=== PATIENT | male | born 1955 | race Caucasian/White ===

== ENCOUNTER 2022-12-20 08:03 | Outpatient (CLI) | payer BC, SELFPAY | END 2022-12-20 08:04 | disposition home or self-care (01) | PROVIDERS: PCP Family Medicine; Visit Provider Family Medicine | DX: Z00.00 Encounter for general adult medical examination without abnormal findings (principal); E78.5 Hyperlipidemia, unspecified; M10.9 Gout, unspecified; Z12.5 Encounter for screening for malignant neoplasm of prostate | CPT/HCPCS: 80053; 80061; 84153; 84550 ==

== ENCOUNTER 2023-01-15 08:04 | Outpatient (CLI) | payer BC, SELFPAY ==
--- NOTE | 2023-01-15 09:47 | W.ANESCHARGE ---
Anesthesia Charges Start Date/Time Anesthesia Start Date: 01/15/23 Anesthesia Start Time: 08:47 Stop Date/Time Anesthesia Stop Date: 01/15/23 Anesthesia Stop Time: 09:47
--- NOTE | 2023-01-15 10:20 | W.ANESCHARGE ---
Anesthesia Charges Start Date/Time Anesthesia Start Date: 01/15/23 Anesthesia Start Time: 08:47 Stop Date/Time Anesthesia Stop Date: 01/15/23 Anesthesia Stop Time: 09:47
== END 2023-01-15 08:05 | disposition home or self-care (01) ==
LOC: OP CLINIC 08:05
PROVIDERS: PCP Family Medicine; Visit Provider Surgery
DX: Z12.11 Encounter for screening for malignant neoplasm of colon (principal); K63.5 Polyp of colon; K62.1 Rectal polyp; Z86.010 Personal history of colon polyps
CPT/HCPCS: 00811; 45381; 45385; 88305; J2704

== ENCOUNTER 2024-01-31 09:29 | Outpatient (CLI) | payer BC, SELFPAY | END 2024-01-31 09:30 | disposition home or self-care (01) | PROVIDERS: PCP Family Medicine; Visit Provider Family Medicine | DX: E78.5 Hyperlipidemia, unspecified (principal); R97.20 Elevated prostate specific antigen [PSA]; M10.9 Gout, unspecified; Z12.5 Encounter for screening for malignant neoplasm of prostate | CPT/HCPCS: 80053; 80061; 84550; G0103 ==

== ENCOUNTER 2024-02-18 08:54 | Outpatient (CLI) | payer BC, SELFPAY ==
--- NOTE | 2024-02-18 10:03 | W.ANESCHARGE ---
Anesthesia Charges Start Date/Time Anesthesia Start Date: 02/18/24 Anesthesia Start Time: 09:43 Stop Date/Time Anesthesia Stop Date: 02/18/24 Anesthesia Stop Time: 10:36
--- NOTE | 2024-02-18 10:41 | W.ANESCHARGE ---
Anesthesia Charges Start Date/Time Anesthesia Start Date: 02/18/24 Anesthesia Start Time: 09:43 Stop Date/Time Anesthesia Stop Date: 02/18/24 Anesthesia Stop Time: 10:36
== END 2024-02-18 08:55 | disposition home or self-care (01) ==
LOC: OP CLINIC 08:55
PROVIDERS: PCP Family Medicine; Visit Provider Surgery
DX: Z86.0101 Personal history of adenomatous and serrated colon polyps (principal); D12.4 Benign neoplasm of descending colon; D12.5 Benign neoplasm of sigmoid colon; K21.9 Gastro-esophageal reflux disease without esophagitis; K31.7 Polyp of stomach and duodenum
CPT/HCPCS: 00813; 43239; 45385; 88305; J2704; J3490

== ENCOUNTER 2024-03-31 13:40 | Outpatient (CLI) | payer BC, SELFPAY ==
--- NOTE | 2024-03-31 14:45 | W.PM.STED ---
Stress Test Note Date Date Seen: 03/31/24 Date of test: 03/31/24 Providers Primary care provider: Holger Chavez Stress test physician: Amelia Segura Stress Test Note Stress test ordered: Stress Echo Indication for test: Abnormal calcium score Stress test medicine: None Results discussion: Resting EKG: Sinus rhythm, 60 beats per minute. Flipped T-waves V1. Resting blood pressure: 134/88 Stress test: Patient was consented on stress test ordered and proceeded with a standard Shawn protocol treadmill stress echo. Patient exercised to a 10 minutes, stopping due to reaching exercise capacity on the treadmill, equivocal into to 11.7 Mets. He had a maximum heart rate of 131 beats per minute which was his target calculated heart rate. Patient's heart rate was slow to escalate but does report significant outside exercise. He had a maximal blood pressure 192/104, giving him a rate pressure product of 23,040. He had no chest pain, no arrhythmia. He did exhibit a hypertensive response to exercise but there were no EKG changes indicative of any ischemia. Impression: Subjectively negative, objectively negative EKG portion of this stress test, hypertensive response to exercise. Follow up suggested: Patient discharged in stable condition, await echo images to couple this for a full formal diagnostic. He will hear from ordering physician regarding this report. Blood pressure can be followed with his primary care provider to ensure no hypertension developing.
[2024-03-31 14:51] VITALS: BP 146/84; PULSE 82
== END 2024-03-31 13:41 | disposition home or self-care (01) ==
LOC: STRESS 13:43
PROVIDERS: PCP Family Medicine; Visit Provider Family Medicine
DX: I25.10 Atherosclerotic heart disease of native coronary artery without angina pectoris (principal); R06.09 Other forms of dyspnea
CPT/HCPCS: 93016; 93325; 93351

== ENCOUNTER 2024-05-04 08:22 | Outpatient (CLI) | payer BC, SELFPAY | END 2024-05-04 08:23 | disposition home or self-care (01) | LOC: NFLDREF 05-11 04:45 | PROVIDERS: PCP Family Medicine; Referring Provider Family Medicine; Visit Provider Family Medicine | DX: E78.5 Hyperlipidemia, unspecified (principal) | CPT/HCPCS: 80061; 80076 ==

== ENCOUNTER 2024-09-10 09:37 | Outpatient (CLI) | payer MEDICARE, BC, SELFPAY | END 2024-09-10 09:38 | disposition home or self-care (01) | LOC: LKVREF 09:38 | PROVIDERS: PCP Family Medicine; Visit Provider Family Medicine | DX: E78.5 Hyperlipidemia, unspecified (principal); M1A.9XX0 Chronic gout, unspecified, without tophus (tophi); R97.20 Elevated prostate specific antigen [PSA]; Z12.5 Encounter for screening for malignant neoplasm of prostate | CPT/HCPCS: 80061; 80076; 84550; G0103 ==

== ENCOUNTER 2024-10-13 12:36 | Outpatient (CLI) | payer MEDICARE, BC, SELFPAY | END 2024-10-13 12:37 | disposition home or self-care (01) | PROVIDERS: PCP Family Medicine; Visit Provider Family Medicine | DX: R97.20 Elevated prostate specific antigen [PSA] (principal); M1A.9XX0 Chronic gout, unspecified, without tophus (tophi) | CPT/HCPCS: 84153; 84154; 84550 ==

== ENCOUNTER 2025-01-08 10:41 | Outpatient (CLI) | payer MEDICARE, BC, SELFPAY | END 2025-01-08 10:42 | disposition home or self-care (01) | PROVIDERS: PCP Family Medicine; Visit Provider Family Medicine | DX: R73.9 Hyperglycemia, unspecified (principal); Z13.6 Encounter for screening for cardiovascular disorders | CPT/HCPCS: 80061; 80076 ==